=== PATIENT | male | born 1995 | race Caucasian/White ===

== ENCOUNTER 2016-11-10 20:34 | Inpatient (IN) | payer BC ==
[~2016-11-10] VITALS: Ht 185.4 cm; Wt 84.4 kg
[2016-11-10 20:45] VITALS: BP 109/68
[2016-11-10] MEDS ORDERED: Metoclopramide 10mg/2ml Inj IVP ONE (21:00)
[2016-11-10] MEDS ORDERED: HYDROmorphone 1 MG, DiphenhydrAMINE 25 MG in NS 55 ML IV ONE (21:15)
--- NOTE | 2016-11-10 21:19 | Emergency Room Report ---
History of Present Illness General Chief Complaint: Nausea, Vomiting, and Diarrhea Source: Patient Present Illness HPI Patient presents with complaints of vomiting and diarrhea Patient reports that he has had multiple episodes of diarrhea Also multiple episodes of vomiting since about 12 hours ago ever since waking up Patient also having lower abdominal cramping He has a history of Crohn's disease Was admitted to the hospital several months ago and aortic Denies any chest pain or shortness of breath denies any flank pain He did have some cramping in the lower back area he associated with his kidneys Denies any recent travel denies any fevers Allergies: Coded Allergies: No Known Allergies (Unverified , 11/10/16) Patient History Past Medical History: see triage record Pertinent Family History: none Reviewed Nursing Documentation: PMH: Agreed, PSxH: Agreed Nursing Documentation-PMH Past Medical History: No History, Except For Hx Gastrointestinal Problems: Yes - Crohn's disease Review of Systems All Other Systems: negative except mentioned in HPI Physical Exam Vital Signs Date Time Temp Pulse Resp B/P Pulse Ox O2 Delivery O2 Flow Rate FiO2 11/10/16 20:40 97.9 104 17 109/68 98 Room Air Sp02 EP Interpretation: reviewed, normal General Appearance: no apparent distress Head: normocephalic, atraumatic Eyes: bilateral eye EOMI, bilateral eye PERRL ENT: hearing grossly normal, TMs + canals normal, uvula midline, dry mucus membranes Neck: full range of motion, supple, no meningismus, no bony tend Respiratory: lungs clear, normal breath sounds, no rhonchi, no respiratory distress, no retraction, no accessory muscle use Cardiovascular #1: normal peripheral pulses, regular rate, rhythm, no edema, no gallop, no JVD, no murmur Gastrointestinal: soft, no mass, no organomegaly, non-distended, no guarding, no hernia, no pulsatile mass, no rebound, other - Patient's uncomfortable diffusely no obvious focality, there are some hyperactive bowel sounds Genitourinary: no CVA tenderness Musculoskeletal: normal inspection Neurologic: oriented x3, responsive, physical director III-XII nml as tested, motor strength/ tone normal, sensory intact Psychiatric: mood/affect normal Skin: normal color, no rash, warm/dry, palpation normal Lymphatic: normal inspection, no adenopathy Medical Decision Making Diagnostic Impression: Primary Impression: Nausea, vomiting, and diarrhea Additional Impression: Crohn's colitis ER Course With the history exam and presentation, multiple differentials considered, including but not limited to appendicitis, gastritis, cholecystitis, diverticulitis Patient's blood work reveals elevated white blood for count I did want to initially avoid further CT imaging as the patient has had multiple done in the past however with the high white count and lower abdominal pain CAT scan was obtained showed some nonspecific colitis no obvious other acute pathology patient has done better however feel significantly dehydrated and admitted for further inpatient Labs Test 11/10/16 21:13 White Blood Count 18.6 K/UL (4.8-10.8) Red Blood Count 6.14 M/UL (4.70-6.10) Hemoglobin 19.5 G/DL (14.2-18.0) Hematocrit 53.6 % (42.0-52.0) Mean Corpuscular Volume 87 FL (80-99) Mean Corpuscular Hemoglobin 31.8 PG (27.0-31.0) Mean Corpuscular Hemoglobin Concent 36.4 G/DL (32.0-36.0) Red Cell Distribution Width 11.9 % (11.6-14.8) Platelet Count 231 K/UL (150-450) Mean Platelet Volume 7.6 FL (6.5-10.1) Neutrophils (%) (Auto) % (45.0-75.0) Lymphocytes (%) (Auto) % (20.0-45.0) Monocytes (%) (Auto) % (1.0-10.0) Eosinophils (%) (Auto) % (0.0-3.0) Basophils (%) (Auto) % (0.0-2.0) Differential Total Cells Counted 100 Neutrophils % (Manual) 85 % (45-75) Lymphocytes % (Manual) 4 % (20-45) Monocytes % (Manual) 3 % (1-10) Eosinophils % (Manual) 0 % (0-3) Basophils % (Manual) 0 % (0-2) Band Neutrophils 8 % (0-8) Platelet Estimate Adequate Platelet Morphology Normal Red Blood Cell Morphology Normal Urine Color Yellow Urine Appearance Clear Urine pH 6 (4.5-8.0) Urine Specific [place] 1.020 (1.005-1.035) Urine Protein 2+ (NEGATIVE) Urine Glucose (UA) Negative (NEGATIVE) Urine Ketones 3+ (NEGATIVE) Urine Occult Blood 1+ (NEGATIVE) Urine Nitrite Negative (NEGATIVE) Urine Bilirubin 1+ (NEGATIVE) Urine Ictotest Negative Urine Urobilinogen 1 MG/DL (0.0-1.0) Urine Leukocyte Esterase 1+ (NEGATIVE) Urine RBC 0-2 /HPF (0 - 0) Urine WBC 2-4 /HPF (0 - 0) Urine Squamous Epithelial Cells None /LPF (NONE/OCC) Urine Bacteria Few /HPF (NONE) Urine Mucus Few /LPF (NONE/OCC) Sodium Level 140 mEQ/L (135-145) Potassium Level 5.1 mEQ/L (3.4-4.9) Chloride Level 98 mEQ/L (98-107) Carbon Dioxide Level 24 mEQ/L (20-30) Anion Gap 18 (5-15) Blood Urea Nitrogen 16 mg/dL (7-23) Creatinine 1.1 mg/dL (0.7-1.2) Estimat Glomerular Filtration Rate > 60 mL/min (>60) Glucose Level 145 mg/dL (74-106) Calcium Level 10.1 mg/dL (8.6-10.2) Total Bilirubin 1.6 mg/dL (0.0-1.2) Direct Bilirubin 0.2 mg/dL (0.1-0.3) Aspartate Amino Transf (AST/SGOT) 17 U/L (5-40) Alanine Aminotransferase (ALT/SGPT) 9 U/L (3-41) Alkaline Phosphatase 52 U/L (40-129) Total Protein 7.7 g/dL (6.6-8.7) Albumin 4.4 g/dL (3.5-5.2) Globulin 3.3 g/dL Albumin/Globulin Ratio 1.3 (1.0-2.7) Lipase 33 U/L (< 60) CT/MRI/US Diagnostic Results CT/MRI/US Diagnostic Results : Impression CT abdomen pelvis: Terminal ileum colitis no other obvious acute pathology Last Vital Signs Date Time Temp Pulse Resp B/P Pulse Ox O2 Delivery O2 Flow Rate FiO2 11/10/16 20:45 97.9 89 17 109/68 100 Room Air Status: improved Disposition: ADMITTED INPATIENT Condition: Serious Referrals: NOT CHOSEN IPA/,REFERRING (PCP) OLAMIDE SALAZAR D.O. Nov 10, 2016 21:19
[2016-11-10] MEDS ORDERED: HYDROmorphone 1mg/ml Carpuject ONE (21:42)
[2016-11-10] MEDS ORDERED: DiphenhydrAMINE 50mg/ml Inj ONE (21:42)
[2016-11-10 21:49] LABS: MEAN CORPUSCULAR HEMOGLOBIN 31.8 PG (27.0-31.0); MEAN CORPUSCULAR HGB CONC 36.4 G/DL (32.0-36.0); MEAN CORPUSCULAR VOLUME 87 FL (80-99); MEAN PLATELET VOLUME 7.6 FL (6.5-10.1); PLATELET COUNT 231 K/UL (150-450); RED BLOOD COUNT 6.14 M/UL (4.70-6.10); RED CELL DISTRIBUTION WIDTH 11.9 % (11.6-14.8); WHITE BLOOD COUNT 18.6 K/UL (4.8-10.8)
[2016-11-10 22:08] LABS: ALANINE AMINOTRANSFERASE 9 U/L (3-41); ALBUMIN/GLOBULIN RATIO 1.3 (1.0-2.7); ANION GAP 18 (5-15); ASPARTATE AMINO TRANSFERASE 17 U/L (5-40); CALCIUM 10.1 mg/dL (8.6-10.2); CARBON DIOXIDE 24 mEQ/L (20-30); CHLORIDE 98 mEQ/L (98-107); CREATININE 1.1 mg/dL (0.7-1.2); GLOMERULAR FILTRATION RATE > 60 mL/min (>60); HEMOLYSIS 8; LIPASE 33 U/L (< 60); POTASSIUM 5.1 mEQ/L (3.4-4.9); SODIUM 140 mEQ/L (135-145); TOTAL PROTEIN 7.7 g/dL (6.6-8.7)
[2016-11-10 22:16] LABS: APPEARANCE,URINE CLEAR; KETONES,URINE 3+ (NEGATIVE); LEUKOCYTE ESTERASE ,URINE 1+ (NEGATIVE); NITRITE,URINE NEGATIVE (NEGATIVE); PH,URINE 6 (4.5-8.0); PROTEIN,URINE 2+ (NEGATIVE); UROBILINOGEN,URINE 1 MG/DL (0.0-1.0)
[2016-11-10 22:27] LABS: BACTERIA,URINE FEW /HPF; BILIRUBIN,DIRECT 0.2 mg/dL (0.1-0.3); ICTOTEST NEGATIVE; MUCUS,URINE FEW /LPF (NONE/OCC); RBC,URINE 0-2 /HPF (0 - 0)
[2016-11-10 22:45] VITALS: BP 98/71
[2016-11-10 22:47] LABS: BAND NEUTROPHILS % (MANUAL) 8 % (0-8); LYMPHOCYTES % (MANUAL) 4 % (20-45); NEUTROPHILS % (MANUAL) 85 % (45-75); TOTAL CELLS COUNTED 100
[2016-11-10 22:48] LABS: BASOPHILS % (MANUAL) 0 % (0-2); EOSINOPHILS % (MANUAL) 0 % (0-3); PLATELET ESTIMATE ADEQUATE; PLATELET MORPHOLOGY NORMAL
[2016-11-11] VITALS (8 sets, daily range): BP systolic 90–113; BP diastolic 40–73
[2016-11-11] MEDS ORDERED: HYDROmorphone 1mg/ml Carpuject IVP PRN ×3 (01:00→09:00)
[2016-11-11] MEDS ORDERED: AMOXICILLIN500 MG ORAL (01:10)
[2016-11-11] MEDS ORDERED: D5NS 1,000 ML IV SCH (01:52)
[2016-11-11] MEDS ORDERED: metroNIDAZOLE 500mg 100 ML IVPB SCH (02:00)
[2016-11-11] MEDS ORDERED: Solu-MEDROL 40mg Inj IVP SCH ×2 (02:00→06:00)
[2016-11-11] MEDS: D5NS 1,000 ML IV SCH ×2 (05:33→16:25)
[2016-11-11] MEDS: metroNIDAZOLE 500mg 100 ML IVPB SCH ×3 (08:15→23:52)
--- NOTE | 2016-11-11 08:53 | Diagnostic Imaging Report ---
Clinical Indication: PAIN nausea vomiting diarrhea since 11 AM this morning, abdominal pain radiating to lower back. History of Crohn's disease Technique: No oral contrast utilized, per emergency room physician request IV administration nonionic contrast. Venous phase spiral acquisition obtained through the abdomen and pelvis. Multiplanar reconstructions were generated. Total dose length product a 21 mGycm. CTDIvol(s) 16 mGy. Dose reduction achieved using automated exposure control Comparison: None Findings: Lack of enteric contrast severely limits evaluation. The terminal ileum demonstrates wall thickening Small bowel loops elsewhere are fluid-filled. Mildly prominent gas-filled small bowel loops are seen in the left upper quadrant. No definite transition point to suggest small bowel obstruction is evident. The colon is fluid-filled. No free or loculated intraperitoneal air or fluid otherwise. There is evidence of distal esophageal and gastric surgery. The distal esophagus is mildly dilated. No definite bowel wall thickening, although evaluation for such is limited in the absence of enteric contrast. A few prominent mesenteric lymph nodes are demonstrated what may be a normal appendix is demonstrated. The liver, gallbladder, bile ducts, pancreas are unremarkable. The spleen is borderline enlarged, measuring 13 cm long axis dimension. The adrenals, kidneys are unremarkable. No pelvic or retroperitoneal mass or adenopathy. The included lung bases are clear. The bones are unremarkable except for a few small vertebral endplate Schmorl's nodes Impression: Evidence of prior gastroesophageal surgery Wall thickening of the terminal ileum, likely related to stated clinical history of Crohn's disease No evidence of abscess or other complication, although presence of extensive fluid-filled unopacified small bowel loops in the pelvis limits ability to exclude such Nonspecific prominent right lower quadrant lymph nodes Borderline splenomegaly This agrees with the preliminary interpretation provided overnight by [facility]erad[facility] service. The CT scanner at [facility] is accredited by the [employer] and the scans are performed using protocols designed to limit radiation exposure to as low as reasonably achievable to attain images of sufficient resolution adequate for diagnostic evaluation.
[2016-11-11] MEDS: Heparin 5000 units/ml inj SUBQ SCH ×2 (09:29→21:21)
--- NOTE | 2016-11-11 10:57 | History and Physical Report ---
DATE OF ADMISSION: 11/10/2016 CHIEF COMPLAINT: Possible Crohn's flare. HISTORY OF PRESENT ILLNESS: The patient is a pleasant 21-year-old male. He has a history of Crohn disease diagnosed eight years ago. He presented with complaints of nausea, vomiting, and abdominal pain similar to his prior episodes. According to the patient, he was well until the day of admission, he ate some and two hours later, he had nausea, vomiting, or diarrhea. He continues to have abdominal pain and nausea although symptoms were somewhat improved compared to yesterday. On evaluation in the emergency room, the patient has elevated white count. CAT scan showed nonspecific colitis. The patient started on IV fluids, pain treatment, antibiotics now admitted. PAST MEDICAL HISTORY: As above. PAST SURGICAL HISTORY: Gastric sleeve. CURRENT MEDICATIONS: Include Pentasa and amoxicillin. ALLERGIES: None. SOCIAL HISTORY: The patient smokes no alcohol, no drugs. FAMILY HISTORY: Significant for coronary disease, hypertension, and Crohn's. REVIEW OF SYSTEMS: Unremarkable except for abdominal pain, nausea, vomiting, and diarrhea. PHYSICAL EXAMINATION: VITAL SIGNS: Temperature 98 degrees, pulse 81, respirations 18, and blood pressure 101/69. GENERAL: The patient is well-developed, in no apparent distress. HEART: Regular. LUNGS: Clear. ABDOMEN: Soft. Diffusely tender without rebound or guarding. EXTREMITIES: Without clubbing, cyanosis, or edema. NEUROLOGIC: Nonfocal. LABORATORY AND DIAGNOSTIC DATA: White count 18, hemoglobin 19, hematocrit 53, and platelets of 231,000. Sodium 140 and potassium 5.1. Total bilirubin 1.6. ASSESSMENT: This is a pleasant male with complaints of Crohn's, nausea, vomiting, diarrhea suspect secondary the patient's Crohn's. CAT scan shows colitis. PLAN: IV pain medications. Steroids for Crohn's flare. Await GI consultation. Empiric antibiotic therapy. Continue pain treatment and hydration . Flynn Chavez M.D. DR: Vahe JOB#: [id number] CC:
[2016-11-11] MEDS ORDERED: Tums 500mg ORAL PRN (14:15)
[2016-11-11] MEDS ORDERED: D5NS 1000ml IV ONE (14:36)
[2016-11-11] MEDS ORDERED: Tubing IV Secondary IV ONE (14:36)
--- NOTE | 2016-11-11 17:47 | Consultation ---
DATE OF CONSULTATION: 11/11/2016 GASTROENTEROLOGY CONSULTATION CHIEF COMPLAINT: I was asked to see this patient for vomiting and diarrhea. HISTORY OF PRESENT ILLNESS: The patient is a 21-year-old white man, who is from [place] and does not have any doctors in [place]. He has Crohn disease and he has been admitted for nausea, vomiting and diarrhea. He is able to give some details of this past, although he is not very clear on some of the details of his Crohn disease, but there is a following his history. He has had Crohn's disease approximately age 13. He believes that his small bowel was involved. His last endoscopy and colonoscopy was about a year ago in [place]. He has been treated in the past with steroids, but perhaps only once or twice. He was given Humira at some point about four years ago, but he only could take this about four months and discontinued it due to injection site pain. He has been treated mainly with mesalamine. He was previously treated with some Asacol, but currently he has been maintained on Pentasa, which he takes two to three tablets a day of 500 mg each. He sometimes has not taken. He also smokes a pack of cigarettes a day. At baseline, his symptoms are about five bowel movements per day and occasionally one bowel movement at night. The bowel movements are formed, but occasionally loose. The patient also has intermittent abdominal pain, which occasionally wakes him up at night. He also has occasional nausea and vomiting and this happens about once a week. He has had sleeve gastrectomy done about two years ago for morbid obesity. At that time, he was 360 pounds, but currently he is 180 pounds. He had some dental procedure a few days ago. He was given amoxicillin two to three days ago. Other than that, he has had no recent antibiotic use. He does not recall having any strictures and has not had any surgeries related to Crohn's disease. He also has not been tried on Remicade. He does not recall being on immunomodulators such as 6-mercaptopurine, azathioprine or methotrexate. He has been in [place] recently for about six months. PAST MEDICAL HISTORY: History of colon CA as described above since age 13, with a history of morbid obesity status post sleeve gastrectomy two years ago. MEDICATIONS: Outpatient medications include Pentasa 500 mg two to three tablets daily. ALLERGIES: No known drug allergies. SOCIAL HISTORY: The patient smokes a pack of cigarettes a day. He does not drink alcohol. 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 FAMILY HISTORY: Positive for Crohn disease in his brother. REVIEW OF SYSTEMS: The patient's nausea, vomiting, and diarrhea have already resolved overnight. PHYSICAL EXAMINATION: GENERAL: A well-developed and well-nourished white man, seen in his room. HEENT: Normocephalic and atraumatic. Sclerae anicteric. Oropharynx clear. NECK: Supple. CHEST: Clear to auscultation. CARDIOVASCULAR: Regular rate. ABDOMEN: Soft with some mild left lower quadrant abdominal tenderness, but without guarding, rebound or masses. EXTREMITIES: No edema. NEUROLOGIC: Grossly nonfocal. LABORATORY AND DIAGNOSTIC DATA: Laboratory data were reviewed and were notable for elevated white count in the emergency room of 18.6. His hematocrit was slightly elevated at 53.6, with the hemoglobin of 19.5, and platelet count was normal at 231,000. His chemistry panel was notable for bilirubin of 1.6, but direct bilirubin was normal. His transaminases and alkaline phosphatase were also normal. His basic metabolic panel was essentially unremarkable except for minimally elevated potassium of 5.1. A CT scan which was ordered in the emergency room showed some thickening of the terminal ileum bowel loops and fluid-filled small bowel or large bowel loops, however, there is no evidence of strictures or dilations or fistulization or abscesses. Assessment: This patient has a longstanding history of Crohn's disease with an early onset in his early teens. He also has a family history of Crohn's disease and therefore more aggressive approach would be appropriate. He has had ongoing symptoms of Crohn's disease including diarrhea and abdominal pain and nighttime symptoms. He would be a good candidate for biological therapy with perhaps Remicade as the next choice of the anti-TNF agent. Consideration could also be made to treat him with combination therapy with immunological agents and anti-TNF at least for the first year to optimize treatment outcome and minimize antibody formation and this will be his second course of anti-TNF therapy. The patient was strongly advised to discontinue smoking, as this has been shown to worsen Crohn's disease outcome. In addition, he does not recall having pneumonia vaccine and his vaccination should be updated especially with respect to MiraLAX given his smoking history. The patient has already markedly improved overnight and he has only received one dose of steroids only four hours ago. It appears that he was already getting better before the steroids and I did not believe his presentation is due to an acute Crohn exacerbation. He had sudden onset of severe nausea, vomiting and diarrhea 24 hours ago, which appears to have resolved significantly 14 hours later and this is more likely a bout of viral gastroenteritis. As such, we will have to discontinue steroids and observe and re-expose him unless the clinical picture of exacerbation is more clear. Ciprofloxacin and Flagyl, which have been started, however, can be continued until stool cultures and Clostridium difficile have been evaluated and negative. The patient would benefit from restaging workup including endoscopy and colonoscopy and enteropathy to establish the status of his Crohn's disease prior to initiating therapy. These can be done as an outpatient when he is better. The patient will be referred [facility] treatment of his Crohn disease after discharge. Pentasa can be continued, although is of likely minimal benefit in this setting with more aggressive Crohn's disease. In this patient although its benefits are minimal, given the patient's history and clinical presentation. The patient can undergo some of the basic laboratory and stool evaluations including QuantiFERON TB Gold testing and stools for calprotectin with __13:18. However, the latter should be done as an outpatient when he is more at his baseline status. He also needs to have his hepatitis B core antibody tested for future use. RECOMMENDATIONS: 1. Discontinue steroids. 2. Continue antibiotics. 3. Check stool cultures and C. difficile evaluation. 4. Okay to continue Pentasa. 5. Comprehensive IBD evaluation and treatment at IBD Center after discharge. Thank you for asking me to participate in the care of this patient. Ciera Tan M.D. DR: DO JOB#: [id number] CC:
[2016-11-12] VITALS: BP 99/45
[2016-11-12] MEDS: D5NS 1,000 ML IV SCH ×3 (02:00→19:28)
[2016-11-12 04:00] VITALS: BP 97/55
[2016-11-12 08:04] VITALS: BP 92/52
[2016-11-12 08:07] LABS: BASOPHILS % (AUTO) 0.3 % (0.0-2.0); EOSINOPHILS % (AUTO) 0.9 % (0.0-3.0); MEAN CORPUSCULAR HEMOGLOBIN 30.4 PG (27.0-31.0); MEAN CORPUSCULAR HGB CONC 35.1 G/DL (32.0-36.0); MEAN CORPUSCULAR VOLUME 87 FL (80-99); MONOCYTES % (AUTO) 15.4 % (1.0-10.0); NEUTROPHILS % (AUTO) 58.6 % (45.0-75.0); PLATELET COUNT 176 K/UL (150-450); RED BLOOD COUNT 4.55 M/UL (4.70-6.10); WHITE BLOOD COUNT 7.7 K/UL (4.8-10.8)
[2016-11-12 08:19] LABS: ALANINE AMINOTRANSFERASE 7 U/L (3-41); ALBUMIN/GLOBULIN RATIO 1.5 (1.0-2.7); ANION GAP 12 (5-15); ASPARTATE AMINO TRANSFERASE 13 U/L (5-40); CALCIUM 9.1 mg/dL (8.6-10.2); CARBON DIOXIDE 28 mEQ/L (20-30); CHLORIDE 97 mEQ/L (98-107); CREATININE 0.8 mg/dL (0.7-1.2); GLOMERULAR FILTRATION RATE > 60 mL/min (>60); HEMOLYSIS 7; POTASSIUM 3.9 mEQ/L (3.4-4.9); SODIUM 137 mEQ/L (135-145); TOTAL PROTEIN 5.9 g/dL (6.6-8.7)
--- NOTE | 2016-11-12 08:22 | General Progress Note ---
Assessment/Plan Problem List: (1) Crohn's colitis ICD Codes: K50.10 - Crohn's disease of large intestine without complications SNOMED: 52730081 Status: stable, progressing Assessment/Plan ivf pain rx antiemetics follow up stool cultures Subjective ROS Limited/Unobtainable: No Constitutional: Reports: malaise, weakness HEENT: Reports: no symptoms Cardiovascular: Reports: no symptoms Respiratory: Reports: no symptoms Gastrointestinal/Abdominal: Reports: abdominal pain, diarrhea Genitourinary: Reports: no symptoms Neurologic/Psychiatric: Reports: no symptoms Endocrine: Reports: no symptoms Hematologic/Lymphatic: Reports: no symptoms Allergies: Coded Allergies: No Known Allergies (Unverified , 11/10/16) All Systems: reviewed and negative except above Subjective a little better today. still with minimal po intake. decrease abd pain but still requiring pain meds atc. on abx. off steroids per GI recs Objective Last 24 Hour Vital Signs Date Time Temp Pulse Resp B/P Pulse Ox O2 Delivery O2 Flow Rate FiO2 11/12/16 08:04 96.4 50 19 92/52 98 Room Air 11/12/16 04:00 54 18 97/55 97 Room Air 11/12/16 00:00 97.7 70 18 99/45 97 Room Air 11/11/16 20:00 98.1 64 18 100/58 100 11/11/16 15:40 97.7 11/11/16 15:38 97.7 58 20 113/63 98 Room Air 11/11/16 12:19 97.2 53 19 96/56 98 Room Air Intake and Output 11/11/16 11/12/16 19:00 07:00 Intake Total 1060 ml 1275 ml Output Total 1 ml Balance 1059 ml 1275 ml Intake Oral 60 ml IV Total 1000 ml 1275 ml Output Urine Total 1 ml # Bowel Movements 1 Laboratory Tests 11/12/16 06:05: White Blood Count 7.7#, Red Blood Count 4.55L, Hemoglobin 13.8L, Hematocrit 39.4L, Mean Corpuscular Volume 87, Mean Corpuscular Hemoglobin 30.4, Mean Corpuscular Hemoglobin Concent 35.1, Red Cell Distribution Width 12.0, Platelet Count 176, Mean Platelet Volume 8.0, Neutrophils (%) (Auto) 58.6, Lymphocytes (% ) (Auto) 25.0, Monocytes (%) (Auto) 15.4H, Eosinophils (%) (Auto) 0.9, Basophils (%) (Auto) 0.3, Erythrocyte Sedimentation Rate [Pending], Sodium Level [Pending], Potassium Level [Pending], Chloride Level [Pending], Carbon Dioxide Level [Pending], Blood Urea Nitrogen [Pending], Creatinine [Pending], Estimat Glomerular Filtration Rate [Pending], Glucose Level [Pending], Calcium Level [Pending], Iron Level [Pending], Unsaturated Iron Binding [Pending], Total Bilirubin [Pending], Aspartate Amino Transf (AST/SGOT) [Pending], Alanine Aminotransferase (ALT/SGPT) [Pending], Alkaline Phosphatase [Pending], C- Reactive Protein, Quantitative [Pending], Total Protein [Pending], Albumin [ Pending], Globulin [Pending], Vitamin B12 Level [Pending], Cytomegalovirus DNA Qual (PCR) [Pending] Height (Feet): 6 Height (Inches): 1.00 Weight (Pounds): 186 General Appearance: WD/WN, alert Neck: supple Cardiovascular: normal rate Respiratory/Chest: lungs clear, normal breath sounds, no respiratory distress Abdomen: normal bowel sounds, non tender, soft, no organomegaly Edema: no edema noted Arm (L), no edema noted Arm (R), no edema noted Leg (L), no edema noted Leg (R), no edema noted Pedal (L), no edema noted Pedal (R), no edema noted Generalized RASHI LANDA Nov 12, 2016 08:22
[2016-11-12 08:23] LABS: CRP QUANT 2.1 mg/dL (< 0.5)
[2016-11-12] MEDS: metroNIDAZOLE 500mg 100 ML IVPB SCH ×2 (08:37→16:02)
[2016-11-12] MEDS: Heparin 5000 units/ml inj SUBQ SCH ×2 (08:42→21:02)
[2016-11-12 11:54] VITALS: BP 92/56
--- NOTE | 2016-11-12 14:57 | General Progress Note ---
Assessment/Plan Assessment/Plan Assessment - Crohns disease - current illness likely transient gastroenteritis Recommendations - advance diet - no need for steroids - d/c planning for am - pt advised to go to [facility] at [facility] or [facility] for f/u after d/c Subjective Allergies: Coded Allergies: No Known Allergies (Unverified , 11/10/16) Subjective feels better close to baseline today some nausea some loose BM Objective Last 24 Hour Vital Signs Date Time Temp Pulse Resp B/P Pulse Ox O2 Delivery O2 Flow Rate FiO2 11/12/16 14:05 97.9 11/12/16 11:54 97.9 50 19 92/56 100 Room Air 11/12/16 08:04 96.4 50 19 92/52 98 Room Air 11/12/16 04:00 54 18 97/55 97 Room Air 11/12/16 00:00 97.7 70 18 99/45 97 Room Air 11/11/16 20:00 98.1 64 18 100/58 100 11/11/16 15:40 97.7 11/11/16 15:38 97.7 58 20 113/63 98 Room Air Intake and Output 11/11/16 11/12/16 19:00 07:00 Intake Total 1060 ml 1275 ml Output Total 1 ml Balance 1059 ml 1275 ml Intake Oral 60 ml IV Total 1000 ml 1275 ml Output Urine Total 1 ml # Bowel Movements 1 Laboratory Tests 11/12/16 06:05: White Blood Count 7.7#, Red Blood Count 4.55L, Hemoglobin 13.8L, Hematocrit 39.4L, Mean Corpuscular Volume 87, Mean Corpuscular Hemoglobin 30.4, Mean Corpuscular Hemoglobin Concent 35.1, Red Cell Distribution Width 12.0, Platelet Count 176, Mean Platelet Volume 8.0, Neutrophils (%) (Auto) 58.6, Lymphocytes (% ) (Auto) 25.0, Monocytes (%) (Auto) 15.4H, Eosinophils (%) (Auto) 0.9, Basophils (%) (Auto) 0.3, Erythrocyte Sedimentation Rate 4, Sodium Level 137, Potassium Level 3.9, Chloride Level 97L, Carbon Dioxide Level 28, Anion Gap 12, Blood Urea Nitrogen 9, Creatinine 0.8, Estimat Glomerular Filtration Rate > 60, Glucose Level 93, Calcium Level 9.1, Iron Level 55L, Total Iron Binding Capacity 235L, Percent Iron Saturation 23, Unsaturated Iron Binding 180, Total Bilirubin 0.6, Aspartate Amino Transf (AST/SGOT) 13, Alanine Aminotransferase ( ALT/SGPT) 7, Alkaline Phosphatase 35L, C-Reactive Protein, Quantitative 2.1H, Total Protein 5.9L, Albumin 3.6, Globulin 2.3, Albumin/Globulin Ratio 1.5, Vitamin B12 Level 616, Cytomegalovirus DNA Qual (PCR) [Pending] Height (Feet): 6 Height (Inches): 1.00 Weight (Pounds): 186 Objective WDWN NCAT supple CTA RRR Soft ND mild TTP LLQ no edema SHIMA OBREGON Nov 12, 2016 14:57
[2016-11-12] MEDS ORDERED: D5NS 1000ml IV ONE (15:02)
[2016-11-12 16:16] VITALS: BP 91/49
[2016-11-12 20:00] VITALS: BP 121/77
[2016-11-13] VITALS: BP 100/55
[2016-11-13] MEDS: metroNIDAZOLE 500mg 100 ML IVPB SCH ×2 (00:01→08:08)
[2016-11-13 04:00] VITALS: BP 91/63
[2016-11-13 04:35] VITALS: BP 95/62
[2016-11-13 08:00] VITALS: BP 92/51
[2016-11-13] MEDS: D5NS 1,000 ML IV SCH (08:08)
[2016-11-13] MEDS ORDERED: Norco 10mg/325mg tab ORAL PRN (08:45)
[2016-11-13] MEDS: Heparin 5000 units/ml inj SUBQ SCH (09:10)
--- NOTE | 2016-11-13 10:00 | General Progress Note ---
Assessment/Plan Assessment/Plan Assessment - Crohns disease - current illness likely transient gastroenteritis - persistent N/V and diarrhea concerning Recommendations - NPO - MRE today - IVF - d/c flagyl since C Diff (-) and pt with N/V Subjective Allergies: Coded Allergies: No Known Allergies (Unverified , 11/10/16) Subjective cannot eat c/o nausea failed to eat solids last night unable to order stool Calprotectin here ESR negative, CRP elevated Objective Last 24 Hour Vital Signs Date Time Temp Pulse Resp B/P Pulse Ox O2 Delivery O2 Flow Rate FiO2 11/13/16 08:00 97.3 47 18 92/51 94 Room Air 11/13/16 04:35 58 95/62 11/13/16 04:00 97.3 49 21 91/63 99 Room Air 11/13/16 00:00 97.7 59 19 100/55 94 Room Air 11/12/16 20:00 97.9 51 20 121/77 Room Air 11/12/16 18:27 97.5 11/12/16 16:16 97.5 54 19 91/49 98 Room Air 11/12/16 11:54 97.9 50 19 92/56 100 Room Air Intake and Output 11/12/16 11/13/16 19:00 07:00 Intake Total 1200 ml 1150 ml Balance 1200 ml 1150 ml Intake Oral 100 ml IV Total 1200 ml 1050 ml # Voids 1 Height (Feet): 6 Height (Inches): 1.00 Weight (Pounds): 186 Objective WDWN NCAT supple CTA RRR Soft ND mild TTP LLQ no edema SHIMA OBREGON November 13, 2016 10:00
[2016-11-13 10:58] LABS: ALANINE AMINOTRANSFERASE 8 U/L (3-41); ALBUMIN/GLOBULIN RATIO 1.4 (1.0-2.7); ANION GAP 11 (5-15); ASPARTATE AMINO TRANSFERASE 13 U/L (5-40); CALCIUM 8.6 mg/dL (8.6-10.2); CARBON DIOXIDE 27 mEQ/L (20-30); CHLORIDE 101 mEQ/L (98-107); CREATININE 0.9 mg/dL (0.7-1.2); GLOMERULAR FILTRATION RATE > 60 mL/min (>60); HEMOLYSIS 6; POTASSIUM 3.5 mEQ/L (3.4-4.9); SODIUM 139 mEQ/L (135-145); TOTAL PROTEIN 5.1 g/dL (6.6-8.7)
[2016-11-13 12:00] VITALS: BP 99/46
[2016-11-13] MEDS ORDERED: ZOFRAN ODT8 MG ORAL (13:14)
[2016-11-13] MEDS ORDERED: NS 55ml IV ONE (13:29)
--- NOTE | 2016-11-14 01:48 | Discharge Summary ---
DATE OF ADMISSION: 11/10/2016 DATE OF DISCHARGE: 11/13/2016 ADMISSION DIAGNOSES: 1. Abdominal pain. 2. History of Crohn possible Crohn flare. 3. Dehydration. 4. Gastroenteritis DISCHARGE DIAGNOSES: 1. Abdominal pain. 2. History of Crohn possible Crohn flare. 3. Dehydration. 4. Gastroenteritis. HOSPITAL COURSE: The patient is a pleasant male admitted for abdominal pain similar to prior exacerbation of his Crohn disease. He was admitted here. He did have some nausea and vomiting, diarrhea. GI was consulted gastroenteritis. The patient was doing better. He was tolerating p.o. he has some abdominal pain, but was much than before. DISCHARGE MEDICATIONS: Please see discharge medication list for discharge medications. DIET: Regular diet. ACTIVITY: Ad-Argelia. FOLLOWUP: The patient to follow up with PMD in one to two weeks. Flynn Chavez M.D. DR: Vahe JOB#: [id number] CC:
== END 2016-11-13 13:30 | disposition home or self-care (01) | DRG 392 ==
LOC: EMR 20:58 → 3E 21:18 → EDBD 21:18 → EDBEDREQ 23:20 → 4W 11-11 10:44
DX: K52.9 Noninfective gastroenteritis and colitis, unspecified (principal); K50.90 Crohn's disease, unspecified, without complications; R10.9 Unspecified abdominal pain; E86.0 Dehydration; F17.200 Nicotine dependence, unspecified, uncomplicated; Z98.84 Bariatric surgery status
CPT/HCPCS: 36415; 74177; 80053; 81003; 82248; 82607; 83540; 83550; 83690; 85007; 85025; 85651; 86140; 87324; 87496; J2405; J2765